=== PATIENT | female | born 1945 | race Caucasian/White ===

== ENCOUNTER 2017-05-18 13:57 | Emergency (ER) | payer MEDICARE, BC ==
[2017-05-18] MEDS ORDERED: Sodium Chloride 0.9% 10 ML Syringe FLUSH PRN ×2 (15:01→15:37)
--- NOTE | 2017-05-18 15:09 | EDM.PDOC ---
ED HPI GENERAL MEDICAL PROBLEM - General Chief Complaint: Respiratory Problem Stated Complaint: BLOOD PRESSURE HIGH Time Seen by Provider: 05/18/17 14:45 Source of Information: Reports: Patient History Limitations: Reports: No Limitations - History of Present Illness INITIAL COMMENTS - FREE TEXT/NARRATIVE: Taylor presents today with complaints of dyspnea with exertion/activity today. She recently had left total knee arthroplasty on 05/12/17. She stopped use of coumadin on 05/07/17 and used lovenox to bridge. She has a history of PE x 2 in the past. Onset Date: 05/18/17 Onset Time: 07:00 Duration: Hour(s): Location: Reports: Other (SOB) Quality: Reports: Other (with activity) Improves with: Reports: Rest Worsens with: Reports: Movement - Related Data Allergies Allergy/AdvReac Type Severity Reaction Status Date / Time amlodipine Allergy Unknown Swelling Verified 10/04/15 07:21 aspirin Allergy Unknown Hives Verified 10/04/15 07:21 Home Meds: Home Meds Cholecalciferol (Vitamin D3) [Vitamin D3] 2,000 unit PO DAILY 12/08/14 [History] Losartan/Hydrochlorothiazide [Losartan-HCTZ 100-12.5 MG] 25 - 100 tab PO DAILY 12/08/14 [History] Metoprolol Succinate [Toprol Xl] 200 mg PO DAILY 12/08/14 [History] Clopidogrel Bisulfate [Plavix] 75 mg PO DAILY 10/02/15 [History] Ibuprofen [Motrin] 800 mg PO Q6HR PRN 10/02/15 [History] Simvastatin [Zocor] 20 mg PO DAILY 10/02/15 [History] Triamcinolone Acetonide [Kenalog 0.1% Crm] 1 film TOP TID 10/02/15 [History] Acetaminophen [Tylenol] 650 mg PO Q6H 05/18/17 [History] Pravastatin [Pravachol] 40 mg PO BEDTIME 05/18/17 [History] Warfarin [Coumadin] 5 mg PO ASDIRECTED 05/18/17 [History] Warfarin [Coumadin] 6.25 mg PO ASDIRECTED 05/18/17 [History] hydrALAZINE [Apresoline] 10 mg PO Q8H 05/18/17 [History] hydrOXYzine HCl [Atarax] 25 - 50 mg PO Q6H 05/18/17 [History] oxyCODONE 5 - 10 mg PO Q4HR 05/18/17 [History] traMADol [Ultram] 1 - 2 tab PO Q6HR 05/18/17 [History] Past Medical History HEENT History: Reports: Impaired Vision Cardiovascular History: Reports: High Cholesterol, Hypertension Respiratory History: Reports: Other (See Below) Other Respiratory History: blood clot in lungs a couple of years ago Other Musculoskeletal History: foot, arm and wrist. left knee arthroplasty 05/12 - Infectious Disease History Infectious Disease History: Reports: Chicken Pox - Past Surgical History Musculoskeletal Surgical History: Reports: Knee Replacement Social & Family History - Tobacco Use Smoking Status *Q: Never Smoker Second Hand Smoke Exposure: No - Caffeine Use Caffeine Use: Reports: Coffee - Alcohol Use Days Per Week of Alcohol Use: 1 Number of Drinks Per Day: 2 Total Drinks Per Week: 2 - Recreational Drug Use Recreational Drug Use: No ED ROS GENERAL - Review of Systems Review Of Systems: See Below Constitutional: Denies: Fever, Malaise, Weakness, Night Sweats, Diaphoresis HEENT: Reports: No Symptoms Respiratory: Reports: Shortness of Breath, Other (SOB with activity). Denies: Wheezing, Pleuritic Chest Pain, Cough, Sputum, Hemoptysis Cardiovascular: Reports: Dyspnea on Exertion. Denies: Blood Pressure Problem, Claudication, Edema, Lightheadedness, Orthopnea, Palpitations, PND, Syncope Endocrine: Reports: No Symptoms GI/Abdominal: Reports: Nausea, Other (Patient reports nausea waxes and wanes since left knee arthroplasty. ). Denies: Abdominal Pain, Black Stool, Bloody Stool, Constipation, Diarrhea, Difficulty Swallowing, Hematemesis, Hematochezia , Vomiting : Denies: Flank Pain, Frequency, Hematuria, Urgency, Urinary Retention Musculoskeletal: Reports: Joint Pain, Muscle Pain, Muscle Stiffness, Other (All to left knee status post arthroplasty - she reports unchanged and pain has improved when compared to prior to surgery. ) Skin: Reports: Other (Healing incision to left knee. ) Neurological: Denies: Confusion, Dizziness, Headache, Numbness, Paresthesia, Syncope, Tingling, Weakness, Gait Disturbance Psychiatric: Reports: No Symptoms Hematologic/Lymphatic: Reports: Other (Patient uses anticoagulation medications for history of PE) Immunologic: Reports: No Symptoms ED EXAM, GENERAL - Physical Exam Exam: See Below Free Text/Narrative:: Taylor is a 72 year old female presenting with dyspnea on exertion status post left knee total arthroplasty on 05/12/17. She has a history of PE, stopped use of coumadin as directed prior to surgery and bridged with lovenox. Exam Limited By: No Limitations General Appearance: Alert, WD/WN, No Apparent Distress Eye Exam: Bilateral Eye: EOMI, PERRL Ears: Normal External Exam, Normal Canal, Hearing Grossly Normal, Normal TMs Ear Exam: Bilateral Ear: Auricle Normal, Canal Normal, TM normal Nose: Normal Inspection, Normal Mucosa, No Blood Throat/Mouth: Normal Inspection, Normal Lips, Normal Teeth, Normal Gums, Normal Oropharynx, Normal Voice, No Airway Compromise Head: Atraumatic, Normocephalic Neck: Normal Inspection, Supple, Non-Tender, Full Range of Motion Respiratory/Chest: No Respiratory Distress, Lungs Clear, Normal Breath Sounds, No Accessory Muscle Use, Chest Non-Tender Cardiovascular: Normal Peripheral Pulses, Regular Rate, Rhythm, No Edema, No Gallop, No Murmur, No Rub Peripheral Pulses: 2+: Radial (L), Radial (R), Dorsalis Pedis (L), Dorsalis Pedis (R) GI/Abdominal: Normal Bowel Sounds, Soft, Non-Tender, No Organomegaly, No Distention, No Abnormal Bruit, No Mass, Pelvis Stable Back Exam: Normal Inspection, Full Range of Motion. No: CVA Tenderness (R), CVA Tenderness (L) Extremities: Normal Inspection, Normal Range of Motion, Non-Tender, No Pedal Edema, Normal Capillary Refill Neurological: Alert, Oriented, CN II-XII Intact, Normal Cognition, Normal Gait, No Motor/Sensory Deficits Psychiatric: Normal Affect, Normal Mood Skin Exam: Warm, Dry, Intact, Normal Color, No Rash Lymphatic: No Adenopathy EKG INTERPRETATION EKG Date: 05/18/17 Time: 15:31 Rhythm: NSR [place]: Normal P-Wave: Present QRS: Normal ST-T: Normal QT: Normal Course - Vital Signs Last Recorded V/S: Last Vital Signs Temp 36.0 C 05/18/17 14:15 Pulse 74 05/18/17 18:02 Resp 16 05/18/17 17:07 BP 156/92 H 05/18/17 18:02 Pulse Ox 92 L 05/18/17 18:02 - Orders/Labs/Meds Orders: Active Orders 24 hr Category Date Time Status EKG Documentation Completion [RC] ASDIRECTED Care 05/18/17 15:02 Active Ang Chest [CT] Stat Exams 05/18/17 15:01 Taken Iopamidol [Isovue-370 (76%)] Med 05/18/17 15:45 Active 100 ml IV . DIRECTED Sodium Chloride 0.9% [Saline Flush] Med 05/18/17 15:01 Active 10 ml FLUSH ASDIRECTED PRN Sodium Chloride 0.9% [Saline Flush] Med 05/18/17 15:37 Active 10 ml FLUSH ONETIME PRN Saline Lock Insert [OM.PC] Routine Oth 05/18/17 15:01 Ordered EKG 12 Lead [EK] Routine Ther 05/18/17 15:01 Ordered Medication Orders Iopamidol (Isovue-370 (76%)) 100 ml IV . DIRECTED KEITH Last Admin: 05/18/17 16:05 Dose: 100 ml Sodium Chloride (Saline Flush) 10 ml FLUSH ASDIRECTED PRN PRN Reason: Keep Vein Open Last Admin: 05/18/17 15:23 Dose: 10 ml Sodium Chloride (Saline Flush) 10 ml FLUSH ONETIME PRN PRN Reason: PER RADIOLOGY PROTOCOL Last Admin: 05/18/17 16:04 Dose: 10 ml Labs: Laboratory Tests 05/18/17 05/18/17 05/18/17 Range/Units 15:16 15:16 15:16 WBC 9.1 (4.5-11.0) K/uL RBC 4.16 (3.30-5.50) M/uL Hgb 11.9 L (12.0-15.0) g/dL Hct 36.1 (36.0-48.0) % MCV 87 (80-98) fL MCH 29 (27-31) pg MCHC 33 (32-36) % Plt Count 316 (150-400) K/uL Neut % (Auto) 67 H (36-66) % Lymph % (Auto) 18 L (24-44) % [place] % (Auto) 12 H (2-6) % Eos % (Auto) 2 (2-4) % Baso % (Auto) 1 (0-1) % PT (9.5-12.0) sec INR (0.80-1.20) APTT (27.0-36.0) sec Sodium 133 L (140-148) mmol/L Potassium 3.7 (3.6-5.2) mmol/L Chloride 97 L (100-108) mmol/L Carbon Dioxide 29 (21-32) mmol/L Anion Gap 10.7 (5.0-14.0) mmol/L BUN 16 (7-18) mg/dL Creatinine 1.1 H (0.6-1.0) mg/dL Est Cr Clr Drug Dosing 37.67 mL/min Estimated GFR (MDRD) 49 L (>60) Glucose 122 H (74-106) mg/dL Calcium 9.0 (8.5-10.1) mg/dL Total Bilirubin 0.6 (0.2-1.0) mg/dL AST 20 (15-37) U/L ALT 23 (12-78) U/L Alkaline Phosphatase 52 (46-116) U/L Troponin I < 0.017 (0.000-0.056) ng/mL Total Protein 6.6 (6.4-8.2) g/dL Albumin 2.9 L (3.4-5.0) g/dL Globulin 3.7 H (2.3-3.5) g/dL Albumin/Globulin Ratio 0.8 L (1.2-2.2) 05/18/ Range/Units 15:16 WBC (4.5-11.0) K/uL RBC (3.30-5.50) M/uL Hgb (12.0-15.0) g/dL Hct (36.0-48.0) % MCV (80-98) fL MCH (27-31) pg MCHC (32-36) % Plt Count (150-400) K/uL Neut % (Auto) (36-66) % Lymph % (Auto) (24-44) % [place] % (Auto) (2-6) % Eos % (Auto) (2-4) % Baso % (Auto) (0-1) % PT 29.5 H (9.5-12.0) sec INR 2.65 H (0.80-1.20) APTT 43.5 H (27.0-36.0) sec Sodium (140-148) mmol/L Potassium (3.6-5.2) mmol/L Chloride (100-108) mmol/L Carbon Dioxide (21-32) mmol/L Anion Gap (5.0-14.0) mmol/L BUN (7-18) mg/dL Creatinine (0.6-1.0) mg/dL Est Cr Clr Drug Dosing mL/min Estimated GFR (MDRD) (>60) Glucose (74-106) mg/dL Calcium (8.5-10.1) mg/dL Total Bilirubin (0.2-1.0) mg/dL AST (15-37) U/L ALT (12-78) U/L Alkaline Phosphatase (46-116) U/L Troponin I (0.000-0.056) ng/mL Total Protein (6.4-8.2) g/dL Albumin (3.4-5.0) g/dL Globulin (2.3-3.5) g/dL Albumin/Globulin Ratio (1.2-2.2) Meds: Medications Generic Name Dose Route Start Last Admin Trade Name Freq PRN Reason Stop Dose Admin Iopamidol 100 ml 05/18/17 15:45 05/18/17 16:05 Isovue-370 (76%) IV 100 ml . DIRECTED KEITH Administration Sodium Chloride 10 ml 05/18/17 15:01 05/18/17 15:23 Saline Flush FLUSH 10 ml ASDIRECTED PRN Administration Keep Vein Open Sodium Chloride 10 ml 05/18/17 15:37 05/18/17 16:04 Saline Flush FLUSH 10 ml ONETIME PRN Administration PER RADIOLOGY PROTOCOL Discontinued Medications Generic Name Dose Route Start Last Admin Trade Name Freq PRN Reason Stop Dose Admin Sodium Chloride 100 mls @ 3 mls/sec 05/18/17 15:37 05/18/17 16:04 Normal Saline IV 05/18/17 15:38 3 mls/sec ONETIME ONE Administration Tramadol HCl 50 mg 05/18/17 17:56 05/18/17 18:01 Ultram PO 05/18/17 17:57 50 mg ONETIME ONE Administration - Radiology Interpretation CT Results Date: 05/18/17 (No pulmonary embolis. Enlarged pulmonary artery concerning for pulmonary arterial hypertension. Cardiomegaly, coronary artery disease. ) - Re-Assessments/Exams Free Text/Narrative Re-Assessment/Exam: 05/18/17 17:57 Patient up to the bathroom, tolerated well. Tramadol for knee pain status post surgery. Free Text/Narrative Re-Assessment/Exam: 05/18/17 18:[address] results, all her questions were answered. She is advised to follow up with her primary care provider for further management and work-up. Departure - Departure Time of Disposition: 18:10 Disposition: Home, Self-Care 01 Condition: Fair Clinical Impression: Hypertension, Shortness of breath on exertion - Discharge Information Forms: ED Department Discharge Additional Instructions: Taylor was evaluated in the emergency room for shortness of breath. CT reports no pulmonary embolism. Does show enlarged pulmonary artery, cardiomegaly and coronary artery disease. Continue anticoagulants (warfarin-coumadin), statin (cholesterol medicine) and antihypertensive (hydralazine, metoprolol, losartan/hctz, metoprolol) medications. Do not stop use of any chronic medications. Follow up with your primary provider as scheduled or within two weeks for recheck. Monitor and record your shortness of breath episodes and any other concerns. Return at any time for shortness of breath, chest pain or any other concerns. - My Orders Last 24 Hours: My Active Orders 05/18/17 15:01 Ang Chest [CT] Stat Sodium Chloride 0.9% [Saline Flush] 10 ml FLUSH ASDIRECTED PRN Saline Lock Insert [OM.PC] Routine EKG 12 Lead [EK] Routine 05/18/17 15:02 EKG Documentation Completion [RC] ASDIRECTED 05/18/17 15:37 Sodium Chloride 0.9% [Saline Flush] 10 ml FLUSH ONETIME PRN 05/18/17 15:45 Iopamidol [Isovue-370 (76%)] 100 ml IV . DIRECTED - Assessment/Plan Last 24 Hours: My Active Orders 05/18/17 15:01 Ang Chest [CT] Stat Sodium Chloride 0.9% [Saline Flush] 10 ml FLUSH ASDIRECTED PRN Saline Lock Insert [OM.PC] Routine EKG 12 Lead [EK] Routine 05/18/17 15:02 EKG Documentation Completion [RC] ASDIRECTED 05/18/17 15:37 Sodium Chloride 0.9% [Saline Flush] 10 ml FLUSH ONETIME PRN 05/18/17 15:45 Iopamidol [Isovue-370 (76%)] 100 ml IV . DIRECTED Assessment:: Status post left knee arthroplasty Enlarged pulmonary artery Cardiomegaly Coronary artery disease Plan: Patient will be discharged to home, follow up with her primary provider. Continue current medications including hydralazine. Return for worsening of symptoms.
[2017-05-18] MEDS ORDERED: Sodium Chloride 0.9% 100 ML IV ONE (15:37)
[2017-05-18] MEDS ORDERED: Iopamidol 755 Mg/ML 100 ML Bottle IV SCH (15:45)
[2017-05-18] MEDS ORDERED: traMADol 50 MG Tab PO ONE (17:56)
[2017-05-18 18:02] VITALS: BP 156/92
== END 2017-05-18 18:42 | disposition home or self-care (01) ==
LOC: JP.ED 13:57
DX: R06.02 Shortness of breath (principal); I10 Essential (primary) hypertension; H54.7 Unspecified visual loss; E78.00 Pure hypercholesterolemia, unspecified; Z96.652 Presence of left artificial knee joint; Z88.8 Allergy status to other drugs, medicaments and biological substances; Z79.01 Long term (current) use of anticoagulants
CPT/HCPCS: 36415; 71275; 80053; 84484; 85025; 85610; 85730; 93005; 99285; A9270; J7030; J7050; Q9967; 93010; 99284

== ENCOUNTER 2019-03-11 10:20 | Day surgery (SDC) | payer MEDICARE, BC ==
[2019-03-11] MEDS: Dextrose 5%-Lactated Ringers 1,000 ML IV SCH ×2 (08:07→21:26)
[~2019-03-11 10:20] MED LIST: Acetaminophen 500 MG Tab PO ONE; Bupivacaine 0.5% 50 ML MDV ONE; Dexamethasone 4 MG/ML SDV ONE; Glycopyrrolate 0.2 MG/ML 5 ML MDV ONE; Lidocaine 1% with EPINEPHrine 1:100,000 50 ML MDV ONE; Midazolam 1 MG/ML 2 ML SDV ONE; Neostigmine Methylsulfate 1 MG/ML 5 ML Syringe ONE; Ondansetron 4 MG/2 ML SDV ONE; Propofol 200 MG/20 ML SDV ONE; Rocuronium 50 MG/5 ML Vial ONE; Succinylcholine 200 MG/10 ML MDV ONE; ceFAZolin 2 GM in Premix Bag 1 BAG IV ONE; fentaNYL 100 MCG/2 ML SDV ONE; fentaNYL 250 MCG/5 ML SDV ONE
[2019-03-11] MEDS ORDERED: Acetaminophen/HYDROcodone 325-5 MG Tab PO PRN (11:42)
[2019-03-11] MEDS ORDERED: Ondansetron 4 MG/2 ML SDV IVPUSH PRN (11:42)
[2019-03-11] MEDS ORDERED: Warfarin 2.5 MG, Warfarin 5 MG PO ONE ×2 (15:00)
[2019-03-11] MEDS: ceFAZolin 2 GM in Premix Bag 1 BAG IV SCH (15:54)
[2019-03-11] MEDS ORDERED: Enoxaparin 100 MG/1 ML Syringe SUBCUT ONE (16:00)
[2019-03-11] MEDS ORDERED: Acetaminophen 325 MG Tab PO PRN (20:09)
[2019-03-11] MEDS ORDERED: hydrALAZINE 10 MG Tab PO SCH (21:00)
[2019-03-12] MEDS: ceFAZolin 2 GM in Premix Bag 1 BAG IV SCH (00:31)
[2019-03-12 07:24] VITALS: BP 253/53
[2019-03-12] MEDS ORDERED: Warfarin 2.5 MG Tab PO ONE (09:00)
[2019-03-12] MEDS ORDERED: Metoprolol Succinate 50 MG Tab.ER PO SCH (09:00)
[2019-03-12] MEDS ORDERED: Warfarin 5 MG Tab PO ONE (09:00)
[2019-03-12] MEDS ORDERED: Losartan 50 MG Tab PO SCH (09:00)
[2019-03-12] MEDS ORDERED: Hydrochlorothiazide 12.5 MG Cap PO SCH (09:00)
[2019-03-12] MEDS ORDERED: Enoxaparin 100 MG/1 ML Syringe SUBCUT ONE (09:00)
--- NOTE | 2019-03-14 09:18 | DISCH ---
FINAL DIAGNOSES: 1. Incarcerated right inguinal hernia. 2. Right ilioinguinal nerve at risk for scar entrapment. 3. History of deep vein thrombosis and pulmonary embolism. 4. Renal insufficiency. 5. History of hypertension. 6. History of hyperlipidemia. OPERATIVE PROCEDURES: This was done on 03/11/19, the right inguinal exploration with: 1. Repair of incarcerated right inguinal hernia with mesh. 2. Excision of right ilioinguinal nerve. SUMMARY: This is a 74-year-old presenting with increasingly symptomatic right inguinal hernia. On the day of admission, the patient underwent repair of this. This was fairly broad-based and was an indirect hernia. Two mesh plugs were placed. The right ilioinguinal nerve was felt to be at risk for scar entrapment. It was, therefore, excised at the time of the repair. Postoperatively, no significant problems were noted. She will be discharged home with [place] 5/325, 1 to 2 tabs q.4 hours p.r.n. pain, #25. She will be instructed to finish off the Lovenox shots planned through , will continue the Lovenox and Coumadin prior to discharge, and she will try to resume her usual Coumadin dosing at home tomorrow. She is scheduled for a prothrombin time in the [facility] on this coming . Follow up with Dr. Myers at [facility] on 03/23/2019 with a prothrombin time to be obtained at that point as well.
--- NOTE | 2019-03-14 11:03 | OR ---
DATE OF PROCEDURE: 03/11/2019 PREOPERATIVE DIAGNOSIS: Right inguinal hernia. POSTOPERATIVE DIAGNOSES: 1. Incarcerated right inguinal hernia. 2. Right ilioinguinal nerve at risk for scar entrapment. OPERATIVE PROCEDURE: Right inguinal exploration with: 1. Repair of right incarcerated inguinal hernia with mesh plug technique (04565). 2. Excision of portion of right ilioinguinal nerve (80666). ANESTHESIA: General. ACQUISITIONS EDITOR: Sonia Quiroz PA-C, and PAS. [place] INDICATION FOR PROCEDURE: This is a 74-year-old female, presenting with increasingly symptomatic right inguinal hernia. Plan is to proceed with repair using mesh plug technique. Due to the size of the hernia and body habitus, a general anesthetic will be selected. Potential risks of the procedure including bleeding, infection, injury to the surrounding area, problems with chronic pain following the recurrence of hernia were all reviewed, and the patient wishes to proceed. DETAILS OF PROCEDURE: The patient was taken to the operating room after general endotracheal anesthesia was induced. The abdomen and groin areas were prepped and draped. A standard right inguinal incision was made and carried down through the skin and subcutaneous tissue and through the external oblique aponeurosis. Subaponeurotic flaps had been raised superiorly and inferiorly. The ilioinguinal nerve portion of the mesh plug system would be placed. Given this, a portion of this was excised to allow far- lateral aspect of the incision to minimize chances of postoperative neuropathic pain. The round ligament and hernia sac were then encircled. The round ligament was then divided and advanced to the medial aspect, and that along with the hernia sac was dissected backward toward the internal ring. This was an indirect hernia. The inguinal floor medially was fairly well preserved. Once the hernia was satisfactorily freed up, this was easily reduced. The defect was quite large. An extra large mesh plug was additionally placed and fixed to Hong's ligament with some Titanium tacking screws to the underside of the conjoint tendon medially and superiorly with horizontal mattress sutures of 2-0 Vicryl stitch. There was still some defect laterally, which was felt not to be adequately covered by the present mesh and the mesh plug was then placed into that area. This was affixed with suture superiorly to the conjoined tendon which incorporated both of the mesh plugs and then medium mesh plug was then affixed more laterally and superiorly with horizontal mattress sutures as well and also to the shelving portion of the inguinal ligament inferiorly with the same horizontal mattress sutures of 2-0 Vicryl stitch. The conjoint tendon was then affixed to the shelving portion of the inguinal ligament with running 0 Vicryl stitch and the flat portion of the mesh plug system was then placed from prepubic tubercle where it was fixed with titanium tacking screw across the inguinal floor. The external oblique aponeurosis was then approximated with 3-0 Vicryl stitch as was Luis's fascia and the skin closed with 4-0 Vicryl subcuticular stitch. Dressing applied. The patient was taken to the recovery room in satisfactory condition. Prior to closure, the area was anesthetized with 0.5% Marcaine. Physician residential assistant, Sonia Quiroz, played an essential role in assisting in this case, helping to position the patient, retract structures as needed, as well as suturing and cutting sutures as indicated. Her presence improved patient safety and decreased operative time. Ubaldo Myers MD /[id number]
== END 2019-03-12 10:00 | disposition home or self-care (01) ==
LOC: JP.SDS 10:20 → JP.MS 10:20 → UNDOFXSDCRRACCOM 21:31 → EDSDCBED 21:31 → UNDOFXSDCACCOM 21:31 → JP.SDS 03-12 10:00
PROVIDERS: ATTEND Surgery
DX: K40.30 Unilateral inguinal hernia, with obstruction, without gangrene, not specified as recurrent (principal); I10 Essential (primary) hypertension; E78.00 Pure hypercholesterolemia, unspecified; Z88.6 Allergy status to analgesic agent; Z88.8 Allergy status to other drugs, medicaments and biological substances; Z86.718 Personal history of other venous thrombosis and embolism; Z86.711 Personal history of pulmonary embolism; Z79.01 Long term (current) use of anticoagulants; Z79.899 Other long term (current) drug therapy
CPT/HCPCS: 36415; 49507; 64772; 80048; 83735; 83880; 84100; 88302; A9270; C1713; C1781; J0330; J0690; J1100; J1650; J2020; J2405; J2704; J2710; J3010; J3490; J7042; J2250

== ENCOUNTER 2019-10-13 08:01 | Day surgery (SDC) | payer MEDICARE, BC ==
[2019-10-13] MEDS ORDERED: Sodium Chloride 0.9% 10 ML Syringe FLUSH PRN (08:30)
[2019-10-13 09:47] VITALS: BP 181/74; PULSE 54
--- NOTE | 2019-10-13 10:54 | OR ---
DATE OF PROCEDURE: 10/13/2019 SURGEON: Margaret Babin MD POSTOPERATIVE CARE: Postoperative care will be provided mainly at the [address] [place] [address] [facility] in conjunction with [facility]. PREOPERATIVE DIAGNOSIS: Cataract, right eye. POSTOPERATIVE DIAGNOSIS: Cataract, right eye. PROCEDURE: Phacoemulsification with intraocular lens placement, right eye. ANESTHESIA: Topical and intracameral. ESTIMATED BLOOD LOSS: Minimal. COMPLICATIONS: None. PATHOLOGY SPECIMENS: None. SURGICAL FINDINGS: None. INDICATION FOR PROCEDURE: The patient is a 74-year-old female with history of a visually significant cataract in the right eye, which interfered with activities of daily living. This consisted of a nuclear sclerosis cataract. Following careful discussion of the risks, benefits and alternatives to cataract extraction with intraocular lens placement including blindness and , the patient elected to proceed, and informed, written consent was obtained prior to the procedure. DESCRIPTION OF THE PROCEDURE: The patient was previously identified, and a nahun placed above the right eye. All sources, including the patient, indicated that the right eye was the correct eye. The patient was subsequently taken to the operating room where standard monitors were applied. The patient was then prepped and draped in the usual sterile fashion for ophthalmic surgery. Attention was first directed at the 12 o'clock position where a paracentesis port was fashioned. Shugar solution followed by Viscoat was instilled into the eye. Attention was then directed to the 8:30 position where a triplanar incision was made in a near-clear manner using a keratome. A continuous capsulorrhexis was then made using a combination of the cystotome and Utrata forceps. Hydrodissection was achieved using a balanced salt solution, and the lens rotated nicely. Phacoemulsification was then done using a modified [id number] technique without complication. Phaco time was 7.06 CDE. The remaining cortex was removed using the irrigation/aspiration handpiece. Provisc was then instilled into the eye. A Technis lens, model [id number], at 17.0 diopters was then placed in the capsular bag using an [place] injector. The remaining viscoelastic was removed using the irrigation/aspiration forceps. All wounds were then checked and found to be watertight. The lid speculum and drapes were removed. Maxitrol ointment was placed in the patient's right eye, and the eye was shielded. The patient tolerated the procedure well. The patient was instructed to follow up tomorrow. All needle and sponge counts were correct at the end of the procedure. Margaret Babin MD /[id number]
== END 2019-10-13 09:49 | disposition home or self-care (01) ==
LOC: JP.SDS 08:01
PROVIDERS: ATTEND Ophthalmology
DX: H25.11 Age-related nuclear cataract, right eye (principal); I10 Essential (primary) hypertension
CPT/HCPCS: V2632

== ENCOUNTER 2019-11-02 07:12 | Emergency (ER) | payer MEDICARE, BC ==
[2019-11-02 07:28] VITALS: BP 184/77; PULSE 84
[2019-11-02] MEDS ORDERED: Bacitracin Oint 1 GM U/D Packet TOP ONE (07:53)
[2019-11-02] MEDS ORDERED: Lidocaine 1% 20 ML MDV INJECT ONE (07:53)
--- NOTE | 2019-11-02 08:01 | EDM.PDOC ---
ED HPI GENERAL MEDICAL PROBLEM - General Chief Complaint: Head Injury Stated Complaint: CUT RIGHT EYEBROW Time Seen by Provider: 11/02/19 07:56 Source of Information: Reports: Patient History Limitations: Reports: No Limitations - History of Present Illness INITIAL COMMENTS - FREE TEXT/NARRATIVE: pt fell and hit a nite stand at home She has a 3/4 inch laceration in the rt eyebrow area. The pt was not knocked out and she does not have other injuries. Onset: Today, Sudden Duration: Hour(s): Location: Reports: Face Associated Symptoms: Reports: No Other Symptoms Right Temporal Pain Score (Numeric/FACES): 3 - Related Data Allergies Allergy/AdvReac Type Severity Reaction Status Date / Time amlodipine Allergy Unknown Swelling Verified 10/10/19 15:58 aspirin Allergy Unknown Hives Verified 10/10/19 15:58 Home Meds: Home Meds Losartan/Hydrochlorothiazide [Losartan-HCTZ 100-12.5 MG] 25 - 100 tab PO DAILY 12/08/14 [History] Metoprolol Succinate [Toprol Xl] 200 mg PO DAILY 12/08/14 [History] Triamcinolone Acetonide [Kenalog 0.1% Crm] 1 film TOP TID 10/02/15 [History] Acetaminophen [Tylenol] 650 mg PO Q6H PRN 05/18/17 [History] Pravastatin [Pravachol] 40 mg PO BEDTIME 05/18/17 [History] Warfarin [Coumadin] 5 mg PO ASDIRECTED 05/18/17 [History] hydrALAZINE [Apresoline] 10 mg PO BID 05/18/17 [History] tiZANidine HCl [Zanaflex] 4 mg PO TID 10/10/19 [History] Past Medical History HEENT History: Reports: Cataract, Impaired Vision, Other (See Below) Other HEENT History: wears glasses Cardiovascular History: Reports: High Cholesterol, Hypertension Respiratory History: Reports: PE, Other (See Below) Other Respiratory History: blood clot in lungs a couple of years ago Gastrointestinal History: Reports: Colon Polyp, Other (See Below) Other Gastrointestinal History: inguinal hernia ENDOCRINOLOGIST History: Reports: Musculoskeletal History: Reports: Arthritis, Back Pain, Chronic Other Musculoskeletal History: foot, arm and wrist. left knee arthroplasty 05/12 Endocrine/Metabolic History: Reports: Obesity/BMI 30+, Other (See Below) Other Endocrine/Metabolic History: borderline diabetic Hematologic History: Reports: Anticoagulation Therapy - Infectious Disease History Infectious Disease History: Reports: Chicken Pox - Past Surgical History Cardiovascular Surgical History: Reports: None Respiratory Surgical History: Reports: None GI Surgical History: Reports: Colonoscopy, Hernia Repair/Other Female Surgical History: Reports: Breast Biopsy Endocrine Surgical History: Reports: None Musculoskeletal Surgical History: Reports: Knee Replacement Dermatological Surgical History: Reports: None Social & Family History - Family History Family Medical History: Noncontributory - Tobacco Use Smoking Status *Q: Never Smoker - Caffeine Use Caffeine Use: Reports: Coffee, Soda, Tea - Recreational Drug Use Recreational Drug Use: No ED ROS GENERAL - Review of Systems Review Of Systems: See Below Constitutional: Reports: No Symptoms HEENT: Reports: Other (pt has a 3/4 inch laceration in the rt eyebrow area. ) Respiratory: Reports: No Symptoms Cardiovascular: Reports: No Symptoms Endocrine: Reports: No Symptoms GI/Abdominal: Reports: No Symptoms, Other (pt does have acid reflux persistently ) : Reports: No Symptoms Musculoskeletal: Reports: No Symptoms Skin: Reports: No Symptoms ED EXAM, HEAD INJURY - Physical Exam Exam: See Below Text/Narrative:: pt has a 3/4 inch laceration in the rt eyebrow. Exam Limited By: No Limitations General Appearance: Alert, Other (pt was nor knocked out at the time of the incident. ) Head: Other (note the laceration is deep to the subq ) Ears: Normal TMs Nose: Normal Inspection Throat/Mouth: Normal Oropharynx Neck: Non-Tender Course - Vital Signs Last Recorded V/S: Last Vital Signs Temp 35.9 C 11/02/19 08:13 Pulse 84 11/02/19 08:13 Resp 16 11/02/19 08:13 BP 184/77 H 11/02/19 08:13 Pulse Ox 94 L 11/02/19 08:13 - Orders/Labs/Meds Meds: Medications Discontinued Medications Generic Name Dose Route Start Last Admin Trade Name Freq PRN Reason Stop Dose Admin Bacitracin 1 dose 11/02/19 07:53 11/02/19 08:11 Bacitracin Oint 1 Gm TOP 11/02/19 07:54 1 dose ONETIME ONE Administration Diphtheria/Tetanus/Acell Pertussis 0.5 ml 11/02/19 08:43 11/02/19 08:54 Adacel IM 11/02/19 08:44 0.5 ml .ONCE ONE Administration Lidocaine HCl 20 ml 11/02/19 07:53 11/02/19 08:11 Xylocaine 1% INJECT 11/02/19 07:54 20 ml ONETIME ONE Administration - Re-Assessments/Exams Free Text/Narrative Re-Assessment/Exam: 11/02/19 08:25 pt is on coumadin. The wound was cleaned well and infiltrated with lidocaine, the wound was closed with 5-0 chromic, and 6-0 prolene. a pressure dressing was applied. with bacatracin. k 11/05/19 08:58 pt was not current with her tetanus so she was given a tetanus booster. Departure - Departure Time of Disposition: 08:23 Disposition: Home, Self-Care 01 Condition: Fair Clinical Impression: Laceration - Discharge Information Instructions: Head Injury, Adult, [id number] Referrals: PCP,None [Primary Care Provider] - Forms: ED Department Discharge Care Plan Goals: pressure dressing to site and leave in place until tomorrow, may be left open to air, no further ointments, sr in 6 days, keep dry. Sepsis Event Note - Focused Exam Date Exam was Performed: 11/05/19 Time Exam was Performed: 08:58
[2019-11-02] MEDS ORDERED: Diphtheria,Pertussis(Acell),Tetanus Vaccine 0.5 ML SDV IM ONE (08:43)
== END 2019-11-02 09:07 | disposition home or self-care (01) ==
LOC: JP.ED 07:12
DX: S01.111A Laceration without foreign body of right eyelid and periocular area, initial encounter (principal); E66.9 Obesity, unspecified; I10 Essential (primary) hypertension; Z23 Encounter for immunization; Z86.711 Personal history of pulmonary embolism; Z88.6 Allergy status to analgesic agent; Z88.8 Allergy status to other drugs, medicaments and biological substances; Z79.01 Long term (current) use of anticoagulants; W01.198A Fall on same level from slipping, tripping and stumbling with subsequent striking against other object, initial encounter; Y92.009 Unspecified place in unspecified non-institutional (private) residence as the place of occurrence of the external cause
CPT/HCPCS: 12011; 12051; 90471; 90715; 99282; 99283; J2001

== ENCOUNTER → 2019-11-10 | Day surgery (SDC) | payer MEDICARE, BC ==
[~2019-11-10] MED LIST changes: -Acetaminophen 500 MG Tab PO ONE; -Bupivacaine 0.5% 50 ML MDV ONE; -Dexamethasone 4 MG/ML SDV ONE; -Glycopyrrolate 0.2 MG/ML 5 ML MDV ONE; -Lidocaine 1% with EPINEPHrine 1:100,000 50 ML MDV ONE; -Midazolam 1 MG/ML 2 ML SDV ONE; -Neostigmine Methylsulfate 1 MG/ML 5 ML Syringe ONE; -Ondansetron 4 MG/2 ML SDV ONE; -Propofol 200 MG/20 ML SDV ONE; -Rocuronium 50 MG/5 ML Vial ONE; +Sodium Chloride 0.9% 10 ML Syringe FLUSH PRN; -Succinylcholine 200 MG/10 ML MDV ONE; -ceFAZolin 2 GM in Premix Bag 1 BAG IV ONE; -fentaNYL 100 MCG/2 ML SDV ONE; -fentaNYL 250 MCG/5 ML SDV ONE
[2019-11-10 09:45] VITALS: BP 203/59; PULSE 59
--- NOTE | 2019-11-10 11:13 | OR ---
DATE OF PROCEDURE: 11/10/2019 SURGEON: Margaret Babin MD POSTOPERATIVE CARE: Postoperative care will be provided mainly at the [address] [place] [address] [facility] in conjunction with [facility]. PREOPERATIVE DIAGNOSIS: Cataract, left eye. POSTOPERATIVE DIAGNOSIS: Cataract, left eye. PROCEDURE: Phacoemulsification with intraocular lens placement, left eye. ANESTHESIA: Topical and intracameral. ESTIMATED BLOOD LOSS: Minimal. COMPLICATIONS: None. PATHOLOGY SPECIMENS: None. SURGICAL FINDINGS: None. INDICATION FOR PROCEDURE: The patient is a 74-year-old female with history of a visually significant cataract in the left eye, which interfered with activities of daily living. This consisted of a nuclear sclerosis cataract. Following careful discussion of the risks, benefits and alternatives to cataract extraction with intraocular lens placement including blindness and , the patient elected to proceed, and informed, written consent was obtained prior to the procedure. DESCRIPTION OF THE PROCEDURE: The patient was previously identified, and a nahun placed above the left eye. All sources, including the patient, indicated that the left eye was the correct eye. The patient was subsequently taken to the operating room where standard monitors were applied. The patient was then prepped and draped in the usual sterile fashion for ophthalmic surgery. Attention was first directed at the 12 o'clock position where a paracentesis port was fashioned. Shugar solution followed by Viscoat was instilled into the eye. Attention was then directed to the 8:30 position where a triplanar incision was made in a near-clear manner using a keratome. A continuous capsulorrhexis was then made using a combination of the cystotome and Utrata forceps. Hydrodissection was achieved using a balanced salt solution, and the lens rotated nicely. Phacoemulsification was then done using a modified [id number] technique without complication. Phaco time was 7.35 CDE. The remaining cortex was removed using the irrigation/aspiration handpiece. Provisc was then instilled into the eye. A Technis lens, model [id number], at 17.0 diopters was then placed in the capsular bag using an [place] injector. The remaining viscoelastic was removed using the irrigation/aspiration forceps. All wounds were then checked and found to be watertight. The lid speculum and drapes were removed. Maxitrol ointment was placed in the patient's left eye, and the eye was shielded. The patient tolerated the procedure well. The patient was instructed to follow up tomorrow. All needle and sponge counts were correct at the end of the procedure. Margaret Babin MD /[id number]
== END ==
LOC: JP.SDS 07:21
PROVIDERS: ATTEND Ophthalmology
DX: H25.12 Age-related nuclear cataract, left eye (principal); I10 Essential (primary) hypertension; K21.9 Gastro-esophageal reflux disease without esophagitis; E66.9 Obesity, unspecified; Z88.6 Allergy status to analgesic agent; Z88.8 Allergy status to other drugs, medicaments and biological substances; Z68.36 Body mass index [BMI] 36.0-36.9, adult
CPT/HCPCS: 66984; V2632

== ENCOUNTER 2021-12-23 13:02 | Emergency (ER) | payer MEDICARE, BC ==
[2021-12-23] MEDS ORDERED: Potassium Chloride 20 MEQ Tab.ER PO ONE (13:59)
[2021-12-23 14:00] LABS: CORONAVIRUS COVID-19 NAA NEGATIVE (NEGATIVE)
[2021-12-23] MEDS ORDERED: Iopamidol 755 Mg/ML 100 ML Bottle IV SCH (15:15)
[2021-12-23] MEDS ORDERED: Sodium Chloride 0.9% 75 ML IV SCH (15:15)
[2021-12-23] MEDS ORDERED: Levofloxacin/Dextrose 5%-Water 750 MG in Premix Bag 1 BAG IV ONE (16:08)
[2021-12-23] MEDS ORDERED: Clopidogrel 75 MG Tab PO ONE (16:19)
[2021-12-23] MEDS ORDERED: Promethazine 12.5 MG in Sodium Chloride 0.9% 50 ML IV PRN (17:24)
[2021-12-23] MEDS ORDERED: Metoprolol Tartrate 25 MG Tab PO ONE (17:29)
[2021-12-23 21:26] VITALS: BP 154/72; PULSE 81
== END 2021-12-23 22:05 ==
LOC: JP.ED 13:02
DX: I21.4 Non-ST elevation (NSTEMI) myocardial infarction (principal); R09.02 Hypoxemia; R53.1 Weakness; J18.9 Pneumonia, unspecified organism; J91.8 Pleural effusion in other conditions classified elsewhere; R11.2 Nausea with vomiting, unspecified; R19.7 Diarrhea, unspecified; R77.8 Other specified abnormalities of plasma proteins; I10 Essential (primary) hypertension; E78.00 Pure hypercholesterolemia, unspecified; E66.9 Obesity, unspecified; Z68.31 Body mass index [BMI] 31.0-31.9, adult; Z79.899 Other long term (current) drug therapy; Z20.822 Contact with and (suspected) exposure to COVID-19
CPT/HCPCS: 0241U; 36415; 71045; 71275; 80053; 84484; 85025; 85610; 93005; 93010; 96365; 96367; 99283; 99285; A9270; J1956; J2550; Q9967

== ENCOUNTER 2022-05-26 23:15 | Inpatient (IN) | payer MEDICARE, BC ==
[2022-05-27] MEDS ORDERED: Sodium Chloride 0.9% 10 ML Syringe FLUSH PRN (00:14)
[2022-05-27] MEDS ORDERED: HYDROmorphone 0.5 MG/0.5 ML Syringe IVPUSH ONE (00:14)
[2022-05-27 01:09] LABS: ESTIMATED GFR 42 mL/min (>60)
[2022-05-27] MEDS ORDERED: HYDROmorphone 0.5 MG/0.5 ML Syringe IM ONE (01:52)
[2022-05-27] MEDS: Ondansetron 4 MG Tab.DIS PO ONE (01:59)
[2022-05-27] MEDS ORDERED: HYDROmorphone 1 MG/ML Syringe IVPUSH PRN (05:16)
[2022-05-27] MEDS ORDERED: LORazepam 2 MG/ML SDV IV PRN (05:16)
[2022-05-27] MEDS ORDERED: Ondansetron 4 MG/2 ML SDV IV PRN (05:16)
[2022-05-27] MEDS: Sodium Chloride 0.9% 1,000 ML IV SCH ×2 (07:48→16:47)
[2022-05-27] MEDS: Metoprolol Succinate 50 MG Tab.ER PO SCH (09:02)
[2022-05-27] MEDS: Losartan 50 MG Tab PO SCH (09:03)
[2022-05-27] MEDS: Pantoprazole 40 MG Vial IV SCH (09:03)
[2022-05-27] MEDS: hydrALAZINE 10 MG Tab PO SCH ×2 (09:03→20:17)
[2022-05-27] MEDS: Hydrochlorothiazide 25 MG Tab PO SCH (09:03)
[2022-05-27] MEDS ORDERED: Warfarin 5 MG Tab PO SCH (13:00)
[2022-05-27] MEDS: cefTRIAXone 1 GM in Sodium Chloride 0.9% 50 ML IV SCH (16:47)
[2022-05-28] MEDS: Sodium Chloride 0.9% 1,000 ML IV SCH ×2 (01:07→10:00)
[2022-05-28 05:14] LABS: ESTIMATED GFR 65 mL/min (>60)
[2022-05-28] MEDS: Losartan 50 MG Tab PO SCH (09:47)
[2022-05-28] MEDS: Hydrochlorothiazide 25 MG Tab PO SCH (09:47)
[2022-05-28] MEDS: Pantoprazole 40 MG Vial IV SCH (09:50)
[2022-05-28] MEDS: Metoprolol Succinate 50 MG Tab.ER PO SCH (09:50)
[2022-05-28] MEDS: hydrALAZINE 10 MG Tab PO SCH (11:15)
[2022-05-28] MEDS: hydrALAZINE 25 MG Tab PO SCH ×2 (14:18→20:53)
[2022-05-28] MEDS: cefTRIAXone 1 GM in Sodium Chloride 0.9% 50 ML IV SCH (16:12)
[2022-05-29] MEDS: Losartan 50 MG Tab PO SCH (09:39)
[2022-05-29] MEDS: Hydrochlorothiazide 25 MG Tab PO SCH (09:43)
[2022-05-29] MEDS: Metoprolol Succinate 50 MG Tab.ER PO SCH (09:43)
[2022-05-29] MEDS: hydrALAZINE 25 MG Tab PO SCH (09:43)
[2022-05-29 09:44] VITALS: BP 180/58; PULSE 54
== END 2022-05-29 11:55 | disposition home or self-care (01) | DRG 388 ==
LOC: JP.ED 23:15 → JP.ICU 05-27 04:37
PROVIDERS: ADMIT Hospitalist; ATTEND Internal Medicine
PROC: 8E0ZXY6 Isolation (ICD-10-PCS; principal; 2022-05-26)
DX: K56.600 Partial intestinal obstruction, unspecified as to cause (principal); U07.1 COVID-19; E87.1 Hypo-osmolality and hyponatremia; N30.00 Acute cystitis without hematuria; E78.5 Hyperlipidemia, unspecified; E87.6 Hypokalemia; E78.00 Pure hypercholesterolemia, unspecified; I10 Essential (primary) hypertension; M19.90 Unspecified osteoarthritis, unspecified site; R73.03 Prediabetes; Z96.652 Presence of left artificial knee joint; E66.9 Obesity, unspecified; Z68.34 Body mass index [BMI] 34.0-34.9, adult; Z86.718 Personal history of other venous thrombosis and embolism; Z79.01 Long term (current) use of anticoagulants; Z86.711 Personal history of pulmonary embolism; Z79.899 Other long term (current) drug therapy; Z79.1 Long term (current) use of non-steroidal anti-inflammatories (NSAID); Z87.19 Personal history of other diseases of the digestive system; Z88.8 Allergy status to other drugs, medicaments and biological substances; Z88.1 Allergy status to other antibiotic agents; Z97.3 Presence of spectacles and contact lenses; Z86.010 Personal history of colon polyps; Z87.81 Personal history of (healed) traumatic fracture; Z98.42 Cataract extraction status, left eye; Z98.41 Cataract extraction status, right eye; Z90.89 Acquired absence of other organs; Z98.890 Other specified postprocedural states
CPT/HCPCS: 36415; 74176; 80053; 81001; 83605; 83690; 85025; 85610; 86140; 96372; 99285; J1170; J3490; Q0162 ×2; U0002; 99222; 99231; 99238; 99284; A9270-GY; C9113; J0696; J7030

== ENCOUNTER 2023-08-27 08:06 | Day surgery (SDC) | payer MEDICARE, BC ==
[2023-08-27] MEDS ORDERED: Sodium Chloride 0.9% 1,000 ML IV SCH (08:45)
[2023-08-27] MEDS ORDERED: Propofol 200 MG/20 ML SDV ONE ×2 (08:56→10:20)
[2023-08-27] MEDS ORDERED: fentaNYL 50 MCG/ML SDV ONE (08:56)
[2023-08-27 11:36] VITALS: PULSE 53
[2023-08-27 11:41] VITALS: BP 161/82
== END 2023-08-27 11:42 | disposition home or self-care (01) ==
LOC: JP.SDS 08:06
PROVIDERS: ATTEND Surgery
DX: D12.3 Benign neoplasm of transverse colon (principal); D12.2 Benign neoplasm of ascending colon; I10 Essential (primary) hypertension; E78.5 Hyperlipidemia, unspecified; E66.9 Obesity, unspecified; R73.9 Hyperglycemia, unspecified; Z86.718 Personal history of other venous thrombosis and embolism; Z86.711 Personal history of pulmonary embolism; Z88.8 Allergy status to other drugs, medicaments and biological substances
CPT/HCPCS: 45385; 88305; J2704; J3010; J7030

== ENCOUNTER 2023-12-09 21:30 | Emergency (ER) | payer MEDICARE, BC ==
[2023-12-09 21:41] VITALS: BP 192/75; PULSE 75
== END 2023-12-09 23:10 | disposition home or self-care (01) ==
LOC: JP.ED 21:30
DX: S69.92XA Unspecified injury of left wrist, hand and finger(s), initial encounter (principal); I10 Essential (primary) hypertension; E78.00 Pure hypercholesterolemia, unspecified; Z88.1 Allergy status to other antibiotic agents; Z88.8 Allergy status to other drugs, medicaments and biological substances; W27.4XXA Contact with kitchen utensil, initial encounter; Z88.6 Allergy status to analgesic agent
CPT/HCPCS: 12001; 99283

== ENCOUNTER 2024-09-14 09:30 | Day surgery (SDC) | payer MEDICARE, BC ==
[2024-09-14] MEDS: Lactated Ringers 1,000 ML IV SCH (10:02)
[2024-09-14] MEDS ORDERED: fentaNYL 50 MCG/ML SDV ONE (12:56)
[2024-09-14] MEDS ORDERED: Propofol 200 MG/20 ML SDV ONE ×3 (12:56→13:34)
[2024-09-14 15:13] VITALS: BP 157/60; PULSE 52
== END 2024-09-14 15:25 | disposition home or self-care (01) ==
LOC: JP.SDS 09:30
PROVIDERS: ATTEND Surgery
DX: D12.3 Benign neoplasm of transverse colon (principal); D12.2 Benign neoplasm of ascending colon; D12.5 Benign neoplasm of sigmoid colon; K57.30 Diverticulosis of large intestine without perforation or abscess without bleeding; I10 Essential (primary) hypertension
CPT/HCPCS: 45380; 45385; J2704; J3010; J7120; 00811-QZ; 88305

== ENCOUNTER 2025-02-23 05:24 | Emergency (ER) | payer MEDICARE, BC ==
[2025-02-23 08:55] LABS: BASOPHILS ABSOLUTE AUTO 0.05 K/uL (0.00-0.10); BASOPHILS PERCENT AUTO 0.7 % (0.1-1.3); EOSINOPHILS ABSOLUTE AUTO 0.23 K/uL (0.00-0.40); EOSINOPHILS PERCENT AUTO 3.2 % (0.0-5.4); HEMATOCRIT 32.4 % (34.3-46.0); HEMOGLOBIN 10.5 g/dL (11.2-15.5); IMMATURE GRAN ABSOLUTE AUTO 0.03 K/uL (0.00-0.23); IMMATURE GRAN PERCENT AUTO 0.4 % (0.0-0.7); INR 2.5; LYMPHOCYTES ABSOLUTE AUTO 1.42 K/uL (0.8-3.3); LYMPHOCYTES PERCENT AUTO 19.9 % (11.4-47.7); MEAN CORPUSCULAR HEMOGLOBIN 28.3 pg (31.6-35.5); MEAN CORPUSCULAR HGB CONC 32.4 g/dL (31.6-35.5); MEAN CORPUSCULAR VOLUME 87.3 fL (81.4-99.0); MONOCYTES ABSOLUTE AUTO 0.71 K/uL (0.20-0.90); NEUTROPHILS ABSOLUTE AUTO 4.69 K/uL (1.0-7.6); NEUTROPHILS PERCENT AUTO 65.8 % (40.0-78.1); PLATELET COUNT,PLT 227 K/uL (130-375); PROTHROMBIN TIME 24.2 sec (9.2-10.6); RED BLOOD CELL COUNT 3.71 M/uL (3.77-5.24); WHITE BLOOD CELL COUNT,WBC 7.1 K/uL (3.2-11.0)
[2025-02-23 08:56] LABS: A/G RATIO 0.9 (1.2-2.2); ALANINE AMINOTRANSFERASE,ALT 20 U/L (12-78); ALBUMIN 3.1 g/dL (3.4-5.0); ALKALINE PHOSPHATASE 71 U/L (46-116); ANION GAP 12.1 mmol/L (5.0-14.0); ASPARTATE AMNIOTRANSFERASE,AST 20 U/L (15-37); BILIRUBIN TOTAL 0.4 mg/dL (0.2-1.0); BLOOD UREA NITROGEN,BUN 27 mg/dL (7-18); CALCIUM 9.6 mg/dL (8.5-10.1); CARBON DIOXIDE,CO2 27 mmol/L (21-32); CHLORIDE,CL 104 mmol/L (100-108); CREATININE 1.4 mg/dL (0.6-1.0); ESTIMATED GFR 38 mL/min (>60); GLUCOSE RANDOM 119 mg/dL (74-106); POTASSIUM,K 4.1 mmol/L (3.6-5.2); PROTEIN TOTAL,TP 6.7 g/dL (6.4-8.2); SODIUM,NA 139 mmol/L (140-148); TROPONIN I HIGH SENSITIVITY 7.8 pg/mL (<=60.3)
== END 2025-02-23 09:45 | disposition home or self-care (01) ==
LOC: JP.ED 05:24
DX: R07.89 Other chest pain (principal); R09.1 Pleurisy; F17.200 Nicotine dependence, unspecified, uncomplicated
CPT/HCPCS: 36415; 71046; 71046-26; 80053; 84484; 85025; 85379; 85610; 93005; 93010; 99284; 99285